=== PATIENT | female | born 1960 | race Caucasian/White ===

== ENCOUNTER 2020-02-28 05:30 | Inpatient (IN) ==
[2020-02-23 12:45] LABS: Basophils % 0.6 % (0.0-0.8); Eosinophils # 0.3 10*3/uL (0.0-0.87); Eosinophils % 4.5 % (0.00-10.9); Hematocrit 36.8 VOL% (35.7-47.0); Hemoglobin 11.6 GM/DL (12.0-16.0); Immature Granulocytes % 0.6 %; Immature Granulocytes Absolute 0.04 #; Lymphocytes # 1.7 10*3/uL (1.4-4.0); Lymphocytes % 25.3 % (21.3-54.2); Mean Corpuscular HGB Conc 31.5 GM/DL (32-36); Mean Corpuscular Volume 100.3 FL (87-102); Mean Platelet Volume 12.8 FL (9.6-12.0); Monocytes % 7.6 % (1.7-12.7); Neutrophils % 61.4 % (38.7-73.9); Platelet Count 180 T/CUMM (130-400); Red Blood Count 3.67 MC/CUMM (3.8-5.5); Red Cell Distribution Width 13.4 % (9.3-17.3); White Blood Count 6.7 T/CUMM (4-12)
[2020-02-23 12:50] LABS: PT Patient Result 10.3 SECS (9.8-11.9)
[2020-02-23 13:01] LABS: Apearance,Urine CLOUDY (Clear); Bacteria,Urine Occasional /HPF (Few); Bilirubin,Urine Negative (Negative); Blood, Urine Negative (Negative); Glucose,Urine (UA) Negative (Negative); Ketones,Urine Negative (Negative); Mucus,Urine Occasional /LPF (Occasional); Nitrite,Urine Negative (Negative); Protein,Urine Negative; RBC,Urine 5 /HPF (0-4); Squamous Epithelial Cell,Urine Occasional /HPF (0-10); Urine Color Yellow (Yellow); Urine Specific Gravity 1.024 (1.001-1.035); Urine Urobilinogen < 2.0 EU/DL (0.2-1.0); WBC,Urine 1 /HPF (0-6)
[2020-02-23 13:30] LABS: Albumin 3.2 G/DL (3.4-5.0); Bilirubin,Total 0.6 MG/DL (0.2-1.0); Calcium 8.5 MG/DL (8.5-10.1); Osmolality,Calculated 280.5 MOS/KG (273-304); Total Protein 6.8 G/DL (6.4-8.3)
[2020-02-28] MEDS ORDERED: VANCOMYCIN INJ 1,000 MG in SODIUM CHLORIDE 0.9% 250 ML IV ONE ×2 (06:00→18:45)
[2020-02-28] MEDS ORDERED: LACTATED RINGERS 1,000 ML IV SCH (06:00)
[2020-02-28] MEDS ORDERED: GABAPENTIN 400 MG CAPSULE PO ONE (06:00)
[2020-02-28] MEDS ORDERED: ACETAMINOPHEN 500 MG TABLET PO ONE (06:00)
[2020-02-28] MEDS ORDERED: ceFAZolin 1,000 MG in SYRINGE 1 EACH IV ONE (06:00)
[2020-02-28] MEDS ORDERED: FAMOTIDINE 20 MG/2 ML VIAL IV ONE ×2 (06:00→06:39)
[2020-02-28] MEDS ORDERED: ceFAZolin 1,000 MG VIAL ONE (06:12)
[2020-02-28] MEDS ORDERED: VANCOMYCIN 1,000 MG VIAL ONE (06:12)
[2020-02-28] MEDS ORDERED: GABAPENTIN 400 MG CAPSULE ONE (06:38)
[2020-02-28] MEDS ORDERED: ACETAMINOPHEN 500 MG TABLET ONE (06:38)
[2020-02-28] MEDS ORDERED: DEXAMETHASONE 4 MG/1 ML VIAL ONE ×2 (06:42→09:38)
[2020-02-28] MEDS ORDERED: ROPIVACAINE 0.5% 30 ML VIAL ONE (06:42)
[2020-02-28] MEDS ORDERED: DEXMEDETOMIDINE 200 MCG/2 ML VIAL ONE (06:43)
[2020-02-28] MEDS ORDERED: LIDOCAINE 1% 5 ML VIAL ONE (06:43)
[2020-02-28] MEDS ORDERED: BUPIVACAINE SPINAL 0.75% 2 ML AMP SPINAL ONE (06:43)
[2020-02-28] MEDS ORDERED: BACITRACIN OINT 0.9 GM PACK TOP ONE (08:31)
[2020-02-28] MEDS ORDERED: CYCLOBENZAPRINE 10 MG TABLET PO PRN (09:20)
[2020-02-28] MEDS ORDERED: diphenhydrAMINE CAP 25 MG CAPSULE PO PRN (09:22)
[2020-02-28] MEDS ORDERED: ONDANSETRON 4 MG/2 ML VIAL IV PRN ×2 (09:22→10:39)
[2020-02-28] MEDS ORDERED: MORPHINE 4 MG/1 ML VIAL IV PRN ×2 (09:22)
[2020-02-28] MEDS ORDERED: MAGNESIUM HYDROXIDE SUSP 30 ML UDCUP PO PRN (09:22)
[2020-02-28] MEDS ORDERED: fentaNYL 100 MCG/2 ML VIAL ONE (09:38)
[2020-02-28] MEDS ORDERED: propofoL 200 MG/20 ML VIAL IV ONE (09:38)
[2020-02-28] MEDS ORDERED: GLYCOPYRROLATE 0.4 MG/2 ML VIAL ONE (09:38)
[2020-02-28] MEDS ORDERED: ONDANSETRON 4 MG/2 ML VIAL ONE ×2 (09:38→10:36)
[2020-02-28] MEDS ORDERED: LIDOCAINE 2% 5 ML VIAL ONE (09:38)
[2020-02-28] MEDS ORDERED: SEVOFLURANE 1 UNIT/15 MINUTE INH ONE (09:38)
[2020-02-28] MEDS ORDERED: MIDAZOLAM 2 MG/2 ML VIAL ONE (09:38)
[2020-02-28] MEDS ORDERED: ROCURONIUM 100 MG/10 ML VIAL IV ONE (09:39)
[2020-02-28] MEDS ORDERED: NEOSTIGMINE 10 MG/10 ML VIAL ONE (09:39)
[2020-02-28] MEDS ORDERED: PHENYLEPHRINE 1 MG/10 ML SYRINGE IV ONE (09:39)
[2020-02-28 09:59] LABS: Apearance,Urine CLEAR (Clear); Bilirubin,Urine Negative (Negative); Blood, Urine Small mg/dL (Negative); Glucose,Urine (UA) Negative (Negative); Ketones,Urine Negative (Negative); Mucus,Urine Occasional /LPF (Occasional); Nitrite,Urine Negative (Negative); Protein,Urine Negative; RBC,Urine <1 /HPF (0-4); Urine Color Yellow (Yellow); Urine Specific Gravity 1.016 (1.001-1.035); Urine Urobilinogen < 2.0 EU/DL (0.2-1.0)
[2020-02-28] MEDS: LACTATED RINGERS 1,000 ML IV SCH ×2 (10:02→21:29)
[2020-02-28] MEDS ORDERED: HYDROmorphone 2 MG/1 ML VIAL ONE (10:35)
[2020-02-28] MEDS: HYDROmorphone 2 MG/1 ML VIAL IV PRN ×2 (10:40→11:08)
[2020-02-28] MEDS: KETOROLAC 30 MG/1 ML VIAL IV SCH ×2 (15:54→21:28)
[2020-02-28] MEDS: ceFAZolin 2,000 MG in PREMIX 1 EACH IV SCH ×2 (15:54→23:47)
[2020-02-28] MEDS: carvediloL 3.125 MG TABLET PO SCH (21:27)
[2020-02-28] MEDS: TICAGRELOR 90 MG TABLET PO SCH (21:28)
[2020-02-28] MEDS: DOCUSATE SODIUM 100 MG CAPSULE PO SCH (21:28)
[2020-02-29] MEDS: LACTATED RINGERS 1,000 ML IV SCH (00:54)
[2020-02-29] MEDS: KETOROLAC 30 MG/1 ML VIAL IV SCH ×2 (04:45→09:25)
[2020-02-29 07:00] LABS: Basophils % 0.1 % (0.0-0.8); Hematocrit 29.3 VOL% (35.7-47.0); Hemoglobin 9.3 GM/DL (12.0-16.0); Immature Granulocytes % 0.4 %; Immature Granulocytes Absolute 0.03 #; Lymphocytes # 0.9 10*3/uL (1.4-4.0); Lymphocytes % 10.6 % (21.3-54.2); Mean Corpuscular HGB Conc 31.7 GM/DL (32-36); Mean Platelet Volume 12.5 FL (9.6-12.0); Monocytes % 10.8 % (1.7-12.7); Neutrophils % 78.1 % (38.7-73.9); Platelet Count 144 T/CUMM (130-400); Red Blood Count 2.93 MC/CUMM (3.8-5.5); Red Cell Distribution Width 13.4 % (9.3-17.3); White Blood Count 8.5 T/CUMM (4-12)
[2020-02-29 07:26] LABS: Calcium 7.9 MG/DL (8.5-10.1); Osmolality,Calculated 276.1 MOS/KG (273-304)
[2020-02-29 07:29] LABS: Calcium 7.9 MG/DL (8.5-10.1)
[2020-02-29] MEDS: LISINOPRIL/HCTZ 20-12.5 MG TABLET PO SCH (09:00)
[2020-02-29] MEDS: TICAGRELOR 90 MG TABLET PO SCH ×2 (09:01→22:10)
[2020-02-29] MEDS: carvediloL 3.125 MG TABLET PO SCH ×2 (09:01→22:10)
[2020-02-29] MEDS: DOCUSATE SODIUM 100 MG CAPSULE PO SCH ×2 (09:01→22:10)
[2020-02-29] MEDS: ROSUVASTATIN 20 MG TABLET PO SCH (09:01)
[2020-02-29] MEDS: ASPIRIN EC 325 MG TABLET PO SCH (09:01)
[2020-03-01 05:30] LABS: Basophils % 0.2 % (0.0-0.8); Eosinophils # 0.1 10*3/uL (0.0-0.87); Eosinophils % 1.1 % (0.00-10.9); Hematocrit 29.1 VOL% (35.7-47.0); Hemoglobin 9.2 GM/DL (12.0-16.0); Immature Granulocytes % 0.6 %; Immature Granulocytes Absolute 0.05 #; Lymphocytes # 1.7 10*3/uL (1.4-4.0); Lymphocytes % 18.6 % (21.3-54.2); Mean Corpuscular HGB Conc 31.6 GM/DL (32-36); Mean Corpuscular Volume 101.4 FL (87-102); Mean Platelet Volume 12.5 FL (9.6-12.0); Monocytes % 9.7 % (1.7-12.7); Neutrophils % 69.8 % (38.7-73.9); Platelet Count 137 T/CUMM (130-400); Red Blood Count 2.87 MC/CUMM (3.8-5.5); Red Cell Distribution Width 13.9 % (9.3-17.3)
[2020-03-01 07:48] VITALS: BP 95/52
[2020-03-01] MEDS: TICAGRELOR 90 MG TABLET PO SCH (09:30)
[2020-03-01] MEDS: ASPIRIN EC 325 MG TABLET PO SCH (09:30)
[2020-03-01] MEDS: ROSUVASTATIN 20 MG TABLET PO SCH (09:30)
[2020-03-01] MEDS: DOCUSATE SODIUM 100 MG CAPSULE PO SCH (09:30)
[2020-03-01] MEDS: carvediloL 3.125 MG TABLET PO SCH (09:35)
[2020-03-01] MEDS: LISINOPRIL/HCTZ 20-12.5 MG TABLET PO SCH (09:35)
== END 2020-03-01 11:06 | disposition home health service (06) | DRG 470 ==
LOC: N.SDSINP 05:30 → N.3E 14:41
PROVIDERS: ADMIT Orthopaedic Surgery; ATTEND Orthopaedic Surgery

== ENCOUNTER 2020-08-02 05:34 | Inpatient (IN) ==
[2020-07-11 12:17] LABS: Bilirubin,Urine Negative (Negative); Blood, Urine Negative (Negative); Glucose,Urine (UA) Negative (Negative); Ketones,Urine Negative (Negative); Mucus,Urine Occasional /LPF (Occasional); Nitrite,Urine Negative (Negative); Protein,Urine Negative; RBC,Urine 2 /HPF (0-4); Squamous Epithelial Cell,Urine Occasional /HPF (0-10); Urine Appearance Slightly Hazy (Clear); Urine Color Yellow (Yellow); Urine Specific Gravity 1.027 (1.001-1.035); Urine Urobilinogen < 2.0 EU/DL (0.2-1.0); WBC,Urine 2 /HPF (0-6)
[2020-07-11 12:20] LABS: Basophils % 0.5 % (0.0-0.8); Eosinophils # 0.2 10*3/uL (0.0-0.87); Eosinophils % 2.8 % (0.00-10.9); Hematocrit 31.6 VOL% (35.7-47.0); Hemoglobin 9.8 GM/DL (12.0-16.0); Immature Granulocytes % 0.8 %; Immature Granulocytes Absolute 0.05 #; Lymphocytes # 1.2 10*3/uL (1.4-4.0); Mean Corpuscular Volume 91.9 FL (87-102); Mean Platelet Volume 11.5 FL (9.6-12.0); Monocytes % 10.7 % (1.7-12.7); Neutrophils % 66.2 % (38.7-73.9); Platelet Count 240 T/CUMM (130-400); Red Blood Count 3.44 MC/CUMM (3.8-5.5); Red Cell Distribution Width 18.4 % (9.3-17.3); White Blood Count 6.4 T/CUMM (4-12)
[2020-07-11 13:02] LABS: Eosinophils 2 % (0-10); Hypochromasia 1+; Lymphocytes 25 % (20-55); Microcytosis Slight; Platelet Estimate Adequate; Segmented Neutrophils 67 % (50-85); Total Cells Counted 100
[2020-07-11 13:17] LABS: PT Patient Result 10.3 SECS (9.8-11.9)
[2020-07-11 13:25] LABS: Alanine Aminotransferase 18 U/L (13-56); Albumin 3.2 G/DL (3.4-5.0); Alkaline Phosphatase 81 U/L (45-117); Aspartate Amino Transferase 12 U/L (0-37); Bilirubin,Total < 0.39 MG/DL (0.2-1.0); Blood Urea Nitrogen 38 MG/DL (7-18); Calcium 9.4 MG/DL (8.5-10.1); Estimated Glom Filtration Rate 63 ML/MIN; Glucose 102 MG/DL (74-106); Osmolality,Calculated 287.4 MOS/KG (273-304); Total Protein 7.3 G/DL (6.4-8.3)
[~2020-08-02 05:34] MED LIST: VANCOMYCIN INJ 1,000 MG in SODIUM CHLORIDE 0.9% 250 ML IV ONE; ceFAZolin 1,000 MG in SYRINGE 1 EACH IV ONE
[2020-08-02] MEDS ORDERED: VANCOMYCIN 1,000 MG VIAL ONE (05:44)
[2020-08-02] MEDS ORDERED: ceFAZolin 1,000 MG VIAL ONE (05:45)
[2020-08-02] MEDS ORDERED: MIDAZOLAM 2 MG/2 ML VIAL ONE (06:23)
[2020-08-02] MEDS ORDERED: fentaNYL 100 MCG/2 ML VIAL ONE ×2 (06:23→09:45)
[2020-08-02] MEDS ORDERED: LIDOCAINE 2% 5 ML VIAL ONE (06:23)
[2020-08-02] MEDS ORDERED: propofoL 200 MG/20 ML VIAL IV ONE (06:23)
[2020-08-02] MEDS ORDERED: LACTATED RINGERS 1,000 ML IV SCH (06:30)
[2020-08-02] MEDS ORDERED: VANCOMYCIN INJ 1,000 MG in SODIUM CHLORIDE 0.9% 250 ML IV ONE ×2 (06:31→18:00)
[2020-08-02] MEDS ORDERED: ceFAZolin 1,000 MG in SYRINGE 1 EACH IV ONE (06:39)
[2020-08-02] MEDS ORDERED: BUPIVACAINE MPF 0.25% 30 ML VIAL ONE (06:39)
[2020-08-02] MEDS ORDERED: FAMOTIDINE 20 MG TABLET PO ONE (06:43)
[2020-08-02] MEDS ORDERED: ROCURONIUM 50 MG/5 ML VIAL IV ONE (07:13)
[2020-08-02] MEDS ORDERED: ETOMIDATE 40 MG/20 ML VIAL IV ONE (07:14)
[2020-08-02] MEDS ORDERED: ePHEDrine 50 MG/ML VIAL ONE ×2 (07:45→09:07)
[2020-08-02] MEDS ORDERED: SODIUM CHLORIDE 0.9% 100 ML IV ONE (07:59)
[2020-08-02] MEDS ORDERED: TRANEXAMIC ACID 1,000 MG/10 ML VIAL ONE (07:59)
[2020-08-02] MEDS ORDERED: ACETAMINOPHEN 1,000 MG/100 ML VIAL IV ONE (08:34)
[2020-08-02] MEDS ORDERED: LACTATED RINGERS 1,000 ML IV ONE (08:37)
[2020-08-02] MEDS ORDERED: ONDANSETRON 4 MG/2 ML VIAL ONE (08:38)
[2020-08-02] MEDS ORDERED: NEOSTIGMINE 10 MG/10 ML VIAL ONE (08:40)
[2020-08-02] MEDS ORDERED: GLYCOPYRROLATE 0.4 MG/2 ML VIAL ONE (08:40)
[2020-08-02] MEDS ORDERED: DEXAMETHASONE 4 MG/1 ML VIAL ONE (08:52)
[2020-08-02] MEDS ORDERED: PHENYLEPHRINE 1 MG/10 ML SYRINGE IV ONE (09:04)
[2020-08-02] MEDS ORDERED: SEVOFLURANE 1 UNIT/15 MINUTE INH ONE (09:23)
[2020-08-02] MEDS ORDERED: BACITRACIN OINT 0.9 GM PACK TOP ONE (09:30)
[2020-08-02] MEDS ORDERED: MAGNESIUM HYDROXIDE SUSP 30 ML UDCUP PO PRN (09:44)
[2020-08-02] MEDS ORDERED: MORPHINE 4 MG/1 ML VIAL IV PRN ×2 (09:44)
[2020-08-02] MEDS ORDERED: diphenhydrAMINE CAP 25 MG CAPSULE PO PRN (09:44)
[2020-08-02] MEDS ORDERED: ONDANSETRON 4 MG/2 ML VIAL IV PRN ×2 (09:44→10:06)
[2020-08-02] MEDS ORDERED: MEPERIDINE 25 MG/1 ML VIAL IV PRN (10:06)
[2020-08-02] MEDS ORDERED: PROMETHAZINE INJ 25 MG in SODIUM CHLORIDE 0.9% 50 ML IV PRN (10:35)
[2020-08-02] MEDS ORDERED: PROMETHAZINE 25 MG/1 ML VIAL ONE (10:38)
[2020-08-02] MEDS: KETOROLAC 30 MG/1 ML VIAL IV SCH ×3 (11:49→21:45)
[2020-08-02] MEDS: FERROUS SULFATE 325 MG TABLET PO SCH (12:59)
[2020-08-02] MEDS: LACTATED RINGERS 1,000 ML IV SCH ×3 (12:59→23:36)
[2020-08-02] MEDS: ceFAZolin 2,000 MG in PREMIX 1 EACH IV SCH ×2 (15:04→21:45)
[2020-08-02] MEDS: TICAGRELOR 90 MG TABLET PO SCH (20:26)
[2020-08-02] MEDS: DOCUSATE SODIUM 100 MG CAPSULE PO SCH (20:26)
[2020-08-03] MEDS: KETOROLAC 30 MG/1 ML VIAL IV SCH (03:37)
[2020-08-03 05:50] LABS: Basophils % 0.2 % (0.0-0.8); Eosinophils % 0.4 % (0.00-10.9); Hematocrit 26.2 VOL% (35.7-47.0); Immature Granulocytes % 0.5 %; Immature Granulocytes Absolute 0.04 #; Lymphocytes # 1.1 10*3/uL (1.4-4.0); Lymphocytes % 13.4 % (21.3-54.2); Mean Corpuscular HGB Conc 30.5 GM/DL (32-36); Mean Corpuscular Volume 94.6 FL (87-102); Mean Platelet Volume 12.2 FL (9.6-12.0); Monocytes % 9.6 % (1.7-12.7); Neutrophils % 75.9 % (38.7-73.9); Platelet Count 155 T/CUMM (130-400); Red Blood Count 2.77 MC/CUMM (3.8-5.5); Red Cell Distribution Width 18.3 % (9.3-17.3); White Blood Count 8.4 T/CUMM (4-12)
[2020-08-03 06:10] LABS: Calcium 8.3 MG/DL (8.5-10.1); Osmolality,Calculated 281.5 MOS/KG (273-304)
[2020-08-03] MEDS: LACTATED RINGERS 1,000 ML IV SCH (07:46)
[2020-08-03] MEDS: carvediloL 3.125 MG TABLET PO SCH (08:49)
[2020-08-03] MEDS: PANTOPRAZOLE 40 MG TABLET PO SCH (08:49)
[2020-08-03] MEDS: DOCUSATE SODIUM 100 MG CAPSULE PO SCH ×2 (08:49→21:22)
[2020-08-03] MEDS: TICAGRELOR 90 MG TABLET PO SCH ×2 (08:49→21:21)
[2020-08-03] MEDS: LISINOPRIL/HCTZ 20-12.5 MG TABLET PO SCH (08:49)
[2020-08-03] MEDS: ASPIRIN EC 81 MG TABLET PO SCH (08:49)
[2020-08-03] MEDS: ceFAZolin 2,000 MG in PREMIX 1 EACH IV SCH ×2 (08:49→16:15)
[2020-08-03] MEDS: ROSUVASTATIN 20 MG TABLET PO SCH (21:21)
[2020-08-04] MEDS: ceFAZolin 2,000 MG in PREMIX 1 EACH IV SCH ×2 (01:33→09:10)
[2020-08-04 05:57] LABS: Basophils % 0.4 % (0.0-0.8); Eosinophils # 0.4 10*3/uL (0.0-0.87); Eosinophils % 4.9 % (0.00-10.9); Hematocrit 26.6 VOL% (35.7-47.0); Hemoglobin 8.2 GM/DL (12.0-16.0); Immature Granulocytes % 0.3 %; Immature Granulocytes Absolute 0.02 #; Lymphocytes # 1.1 10*3/uL (1.4-4.0); Lymphocytes % 15.6 % (21.3-54.2); Mean Corpuscular HGB Conc 30.8 GM/DL (32-36); Mean Corpuscular Volume 92.7 FL (87-102); Mean Platelet Volume 11.6 FL (9.6-12.0); Monocytes % 9.9 % (1.7-12.7); Neutrophils % 68.9 % (38.7-73.9); Platelet Count 148 T/CUMM (130-400); Red Blood Count 2.87 MC/CUMM (3.8-5.5); Red Cell Distribution Width 18.7 % (9.3-17.3); White Blood Count 7.3 T/CUMM (4-12)
[2020-08-04] MEDS: LISINOPRIL/HCTZ 20-12.5 MG TABLET PO SCH (09:09)
[2020-08-04] MEDS: DOCUSATE SODIUM 100 MG CAPSULE PO SCH ×2 (09:09→20:30)
[2020-08-04] MEDS: ASPIRIN EC 81 MG TABLET PO SCH (09:09)
[2020-08-04] MEDS: PANTOPRAZOLE 40 MG TABLET PO SCH (09:09)
[2020-08-04] MEDS: carvediloL 3.125 MG TABLET PO SCH (09:09)
[2020-08-04] MEDS: TICAGRELOR 90 MG TABLET PO SCH ×2 (10:46→20:30)
[2020-08-04] MEDS: FERROUS SULFATE 325 MG TABLET PO SCH (13:07)
[2020-08-04] MEDS: ROSUVASTATIN 20 MG TABLET PO SCH (20:30)
[2020-08-04] MEDS: SULFAMETHOX/TRIMETHOPRIM 800-160 MG TABLET PO SCH (20:30)
[2020-08-05 06:43] LABS: Basophils % 0.6 % (0.0-0.8); Eosinophils # 0.4 10*3/uL (0.0-0.87); Eosinophils % 5.9 % (0.00-10.9); Hematocrit 26.6 VOL% (35.7-47.0); Hemoglobin 8.1 GM/DL (12.0-16.0); Immature Granulocytes % 0.7 %; Immature Granulocytes Absolute 0.05 #; Lymphocytes # 1.8 10*3/uL (1.4-4.0); Lymphocytes % 24.5 % (21.3-54.2); Mean Corpuscular HGB Conc 30.5 GM/DL (32-36); Mean Platelet Volume 12.3 FL (9.6-12.0); Monocytes % 10.3 % (1.7-12.7); Platelet Count 155 T/CUMM (130-400); Red Blood Count 2.86 MC/CUMM (3.8-5.5); Red Cell Distribution Width 18.9 % (9.3-17.3); White Blood Count 7.2 T/CUMM (4-12)
[2020-08-05 07:27] LABS: Band Neutrophils 3 % (0-10); Eosinophils 4 % (0-10); Lymphocytes 21 % (20-55); Platelet Estimate Normal; Segmented Neutrophils 62 % (50-85); Total Cells Counted 100
[2020-08-05 07:28] LABS: Anisocytosis Slight
[2020-08-05] MEDS: LISINOPRIL/HCTZ 20-12.5 MG TABLET PO SCH (09:12)
[2020-08-05] MEDS: carvediloL 3.125 MG TABLET PO SCH (09:12)
[2020-08-05] MEDS: SULFAMETHOX/TRIMETHOPRIM 800-160 MG TABLET PO SCH (09:26)
[2020-08-05] MEDS: DOCUSATE SODIUM 100 MG CAPSULE PO SCH (09:26)
[2020-08-05] MEDS: TICAGRELOR 90 MG TABLET PO SCH (09:26)
[2020-08-05] MEDS: PANTOPRAZOLE 40 MG TABLET PO SCH (09:26)
[2020-08-05] MEDS: ASPIRIN EC 81 MG TABLET PO SCH (09:26)
[2020-08-05 11:44] VITALS: BP 104/48
== END 2020-08-05 15:10 | disposition home health service (06) | DRG 467 ==
LOC: N.OR 05:34 → N.SDSINP 05:36 → N.3E 11:35
PROVIDERS: ADMIT Orthopaedic Surgery; ATTEND Orthopaedic Surgery

== ENCOUNTER 2020-11-20 05:35 | Inpatient (IN) ==
[2020-11-20] MEDS ORDERED: ceFAZolin 2,000 MG in PREMIX 1 EACH IV ONE (06:00)
[2020-11-20] MEDS ORDERED: VANCOMYCIN INJ 1,000 MG in SODIUM CHLORIDE 0.9% 250 ML IV ONE ×2 (06:00→20:00)
[2020-11-20] MEDS ORDERED: TRANEXAMIC ACID 1,000 MG/10 ML VIAL ONE (06:28)
[2020-11-20] MEDS ORDERED: BACITRACIN OINT 0.9 GM PACK TOP ONE (06:29)
[2020-11-20 06:46] LABS: Bilirubin,Urine Negative (Negative); Blood, Urine Moderate mg/dL (Negative); Glucose,Urine (UA) Negative (Negative); Ketones,Urine Negative (Negative); Mucus,Urine Occasional /LPF (Occasional); Nitrite,Urine Negative (Negative); Protein,Urine Negative; RBC,Urine 1 /HPF (0-4); Squamous Epithelial Cell,Urine Few /HPF (0-10); Urine Appearance Slightly Hazy (Clear); Urine Color Yellow (Yellow); Urine Specific Gravity 1.023 (1.001-1.035); Urine Urobilinogen < 2.0 EU/DL (0.2-1.0); WBC,Urine 1 /HPF (0-6)
[2020-11-20] MEDS ORDERED: ACETAMINOPHEN 500 MG TABLET PO ONE (06:49)
[2020-11-20] MEDS ORDERED: DIAZEPAM 5 MG TABLET PO ONE (06:49)
[2020-11-20] MEDS ORDERED: GABAPENTIN 400 MG CAPSULE PO ONE (06:49)
[2020-11-20] MEDS ORDERED: FAMOTIDINE 20 MG TABLET PO ONE (06:49)
[2020-11-20] MEDS ORDERED: ALBUTEROL 2.5 MG/3 ML NEB RESP TX ONE (06:49)
[2020-11-20 06:55] LABS: PT Patient Result 10.6 SECS (9.8-11.9); Partial Thromboplastin Time 25.3 SECS (23.9-33.8)
[2020-11-20] MEDS: LACTATED RINGERS 1,000 ML IV SCH ×2 (07:00→10:39)
[2020-11-20] MEDS ORDERED: BUPIVACAINE SPINAL 0.75% 2 ML AMP SPINAL ONE (07:29)
[2020-11-20] MEDS ORDERED: fentaNYL 100 MCG/2 ML VIAL ONE ×2 (07:30→08:44)
[2020-11-20] MEDS ORDERED: DEXMEDETOMIDINE 200 MCG/2 ML VIAL ONE (07:30)
[2020-11-20] MEDS ORDERED: LIDOCAINE 2% 5 ML VIAL ONE ×2 (07:30→07:49)
[2020-11-20] MEDS ORDERED: MIDAZOLAM 2 MG/2 ML VIAL ONE ×3 (07:30→09:47)
[2020-11-20] MEDS ORDERED: DEXAMETHASONE 4 MG/1 ML VIAL ONE (07:49)
[2020-11-20] MEDS ORDERED: ROPIVACAINE 0.5% 30 ML VIAL ONE (07:49)
[2020-11-20] MEDS ORDERED: ONDANSETRON 4 MG/2 ML VIAL ONE (08:54)
[2020-11-20] MEDS ORDERED: PHENYLEPHRINE 1 MG/10 ML SYRINGE IV ONE (08:54)
[2020-11-20] MEDS ORDERED: GLYCOPYRROLATE 0.4 MG/2 ML VIAL ONE (08:58)
[2020-11-20] MEDS ORDERED: propofoL 200 MG/20 ML VIAL IV ONE (09:33)
[2020-11-20] MEDS ORDERED: ONDANSETRON 4 MG/2 ML VIAL IV PRN (11:24)
[2020-11-20] MEDS ORDERED: KETOROLAC 30 MG/1 ML VIAL IV PRN (11:24)
[2020-11-20] MEDS ORDERED: ZALEPLON 5 MG CAPSULE PO PRN (11:24)
[2020-11-20] MEDS ORDERED: MAGNESIUM HYDROXIDE SUSP 30 ML UDCUP PO PRN (11:24)
[2020-11-20] MEDS ORDERED: MORPHINE 4 MG/1 ML VIAL IV PRN ×2 (11:24)
[2020-11-20] MEDS ORDERED: LACTATED RINGERS 1,000 ML IV SCH (11:30)
[2020-11-20 11:31] LABS: Bacteria,Urine Occasional /HPF (Few); Bilirubin,Urine Negative (Negative); Blood, Urine Small mg/dL (Negative); Glucose,Urine (UA) Negative (Negative); Hyaline Casts,Urine 1 /LPF (0-3); Ketones,Urine Negative (Negative); Mucus,Urine Few /LPF (Occasional); Nitrite,Urine Negative (Negative); Protein,Urine Negative; RBC,Urine <1 /HPF (0-4); Squamous Epithelial Cell,Urine Few /HPF (0-10); Urine Appearance CLEAR (Clear); Urine Color Yellow (Yellow); Urine Specific Gravity 1.024 (1.001-1.035); Urine Urobilinogen < 2.0 EU/DL (0.2-1.0)
[2020-11-20] MEDS: ceFAZolin 2,000 MG in PREMIX 1 EACH IV SCH (14:48)
[2020-11-20] MEDS: DOCUSATE SODIUM 100 MG CAPSULE PO SCH (20:27)
[2020-11-20] MEDS: carvediloL 3.125 MG TABLET PO SCH (20:29)
[2020-11-21] MEDS: ceFAZolin 2,000 MG in PREMIX 1 EACH IV SCH (00:05)
[2020-11-21 05:35] LABS: Basophils % 0.1 % (0.0-0.8); Eosinophils % 0.1 % (0.00-10.9); Hematocrit 33.9 VOL% (35.7-47.0); Hemoglobin 10.5 GM/DL (12.0-16.0); Immature Granulocytes % 0.5 %; Immature Granulocytes Absolute 0.04 #; Lymphocytes # 0.9 10*3/uL (1.4-4.0); Lymphocytes % 10.7 % (21.3-54.2); Mean Corpuscular Volume 91.6 FL (87-102); Mean Platelet Volume 12.8 FL (9.6-12.0); Monocytes % 9.1 % (1.7-12.7); Neutrophils % 79.5 % (38.7-73.9); Platelet Count 168 T/CUMM (130-400); White Blood Count 8.8 T/CUMM (4-12)
[2020-11-21 06:03] LABS: Calcium 8.3 MG/DL (8.5-10.1); Osmolality,Calculated 277.7 MOS/KG (273-304)
[2020-11-21] MEDS: ROSUVASTATIN 20 MG TABLET PO SCH (08:35)
[2020-11-21] MEDS: ASPIRIN EC 81 MG TABLET PO SCH (08:35)
[2020-11-21] MEDS: hydroCHLOROthiazide 12.5 MG CAPSULE PO SCH (08:35)
[2020-11-21] MEDS: DOCUSATE SODIUM 100 MG CAPSULE PO SCH ×3 (08:35→21:25)
[2020-11-21] MEDS: PANTOPRAZOLE 40 MG TABLET PO SCH (08:35)
[2020-11-21] MEDS: lisinopriL 20 MG TABLET PO SCH (08:36)
[2020-11-21] MEDS: CLOPIDOGREL 75 MG TABLET PO SCH (08:36)
[2020-11-21] MEDS: carvediloL 3.125 MG TABLET PO SCH (08:36)
[2020-11-21] MEDS ORDERED: carvediloL 3.125 MG TABLET PO SCH (09:00)
[2020-11-22] MEDS: carvediloL 3.125 MG TABLET PO SCH ×3 (00:11→08:58)
[2020-11-22 05:20] LABS: Basophils % 0.2 % (0.0-0.8); Eosinophils % 0.3 % (0.00-10.9); Hematocrit 32.8 VOL% (35.7-47.0); Hemoglobin 10.3 GM/DL (12.0-16.0); Immature Granulocytes % 0.6 %; Immature Granulocytes Absolute 0.05 #; Lymphocytes # 1.2 10*3/uL (1.4-4.0); Lymphocytes % 13.7 % (21.3-54.2); Mean Corpuscular HGB Conc 31.4 GM/DL (32-36); Mean Corpuscular Volume 89.9 FL (87-102); Mean Platelet Volume 12.6 FL (9.6-12.0); Monocytes % 10.3 % (1.7-12.7); Neutrophils % 74.9 % (38.7-73.9); Platelet Count 147 T/CUMM (130-400); Red Blood Count 3.65 MC/CUMM (3.8-5.5); Red Cell Distribution Width 18.4 % (9.3-17.3); White Blood Count 8.9 T/CUMM (4-12)
[2020-11-22] MEDS: ASPIRIN EC 81 MG TABLET PO SCH (08:57)
[2020-11-22] MEDS: ROSUVASTATIN 20 MG TABLET PO SCH (08:58)
[2020-11-22] MEDS: lisinopriL 20 MG TABLET PO SCH (08:58)
[2020-11-22] MEDS: CLOPIDOGREL 75 MG TABLET PO SCH (08:58)
[2020-11-22] MEDS: DOCUSATE SODIUM 100 MG CAPSULE PO SCH (08:58)
[2020-11-22] MEDS: hydroCHLOROthiazide 12.5 MG CAPSULE PO SCH (08:58)
[2020-11-22] MEDS: PANTOPRAZOLE 40 MG TABLET PO SCH (08:59)
[2020-11-22 18:41] VITALS: BP 108/50
== END 2020-11-22 13:40 | disposition home or self-care (01) | DRG 470 ==
LOC: N.OR 05:35 → N.SDSINP 05:40 → N.3E 10:30
PROVIDERS: ADMIT Orthopaedic Surgery; ATTEND Orthopaedic Surgery

== ENCOUNTER 2022-03-31 10:35 | Inpatient (IN) ==
[2022-03-31] MEDS ORDERED: SODIUM CHLORIDE 0.9% 1,000 ML IV STA (11:38)
[2022-03-31 11:42] LABS: Basophils % 0.4 % (0.0-0.8); Eosinophils # 0.1 10*3/uL (0.0-0.87); Hematocrit 43.8 VOL% (35.7-47.0); Hemoglobin 13.5 GM/DL (12.0-16.0); Immature Granulocytes % 0.7 %; Immature Granulocytes Absolute 0.04 #; Lymphocytes # 1.2 10*3/uL (1.4-4.0); Lymphocytes % 22.4 % (21.3-54.2); Mean Corpuscular HGB Conc 30.8 GM/DL (32-36); Mean Corpuscular Volume 96.3 FL (87-102); Mean Platelet Volume 12.5 FL (9.6-12.0); Monocytes # 0.5 10*3/uL (0.11-0.8); Monocytes % 9.7 % (1.7-12.7); Neutrophils % 64.8 % (38.7-73.9); Platelet Count 207 T/CUMM (130-400); Red Blood Count 4.55 MC/CUMM (3.8-5.5); Red Cell Distribution Width 15.2 % (9.3-17.3); White Blood Count 5.4 T/CUMM (4-12)
[2022-03-31] MEDS ORDERED: DILTIAZEM 100 MG VIAL.ADD IV ONE (11:42)
[2022-03-31] MEDS: DILTIAZEM INJ 100 MG in SODIUM CHLORIDE 0.9% 100 ML IV SCH ×2 (11:50→23:30)
[2022-03-31 11:51] LABS: PT Patient Result 10.7 SECS (10.5-12.0); Partial Thromboplastin Time 27.9 SECS (23.7-32.9)
[2022-03-31 11:58] LABS: Alanine Aminotransferase 34 U/L (13-56); Albumin 3.3 G/DL (3.4-5.0); Alkaline Phosphatase 102 U/L (45-117); Aspartate Amino Transferase 18 U/L (0-37); Blood Urea Nitrogen 33 MG/DL (7-18); Calcium 8.8 MG/DL (8.5-10.1); Carbon Dioxide 23 MMOL/L (21-32); Chloride 111 MMOL/L (98-107); Glucose 110 MG/DL (74-106); Osmolality,Calculated 288.3 MOS/KG (273-304); Potassium 4.2 MMOL/L (3.5-5.1); Sodium 141 MMOL/L (136-145); Total Protein 7.1 G/DL (6.4-8.2)
[2022-03-31] MEDS ORDERED: LACTATED RINGERS 1,000 ML IV ONE (14:05)
[2022-03-31] MEDS ORDERED: SIMETHICONE CHEW 125 MG TABLET PO PRN (14:15)
[2022-03-31] MEDS ORDERED: ONDANSETRON 4 MG/2 ML VIAL IV PRN (14:15)
[2022-03-31] MEDS ORDERED: ACETAMINOPHEN 325 MG TABLET PO PRN (14:15)
[2022-03-31] MEDS ORDERED: DOCUSATE SODIUM 100 MG CAPSULE PO PRN (14:15)
[2022-03-31] MEDS ORDERED: GLUCAGON 1 MG VIAL IM PRN (14:15)
[2022-03-31] MEDS ORDERED: LACTULOSE 20 GM/30 ML UDCUP PO PRN (14:15)
[2022-03-31] MEDS ORDERED: DEXTROSE 10% 250 ML BAG IV PRN (14:24)
[2022-03-31] MEDS: APIXABAN 5 MG TABLET PO SCH ×2 (15:25→20:25)
[2022-03-31] MEDS: LACTATED RINGERS 1,000 ML IV SCH (15:25)
[2022-03-31 17:54] LABS: Thyroid Stimulating Hormone 1.64 uIU/ml (0.358-3.74)
[2022-04-01] MEDS: LACTATED RINGERS 1,000 ML IV SCH ×2 (05:05→19:33)
[2022-04-01 05:11] LABS: Basophils % 0.3 % (0.0-0.8); Eosinophils # 0.2 10*3/uL (0.0-0.87); Eosinophils % 2.9 % (0.00-10.9); Hematocrit 39.3 VOL% (35.7-47.0); Hemoglobin 11.7 GM/DL (12.0-16.0); Immature Granulocytes % 0.5 %; Immature Granulocytes Absolute 0.03 #; Lymphocytes # 1.6 10*3/uL (1.4-4.0); Mean Corpuscular HGB Conc 29.8 GM/DL (32-36); Mean Corpuscular Volume 98.3 FL (87-102); Mean Platelet Volume 12.8 FL (9.6-12.0); Monocytes # 0.5 10*3/uL (0.11-0.8); Monocytes % 8.4 % (1.7-12.7); Neutrophils % 61.9 % (38.7-73.9); Platelet Count 156 T/CUMM (130-400); Red Cell Distribution Width 15.2 % (9.3-17.3); White Blood Count 6.3 T/CUMM (4-12)
[2022-04-01 05:25] LABS: Alanine Aminotransferase 32 U/L (13-56); Albumin 2.8 G/DL (3.4-5.0); Alkaline Phosphatase 84 U/L (45-117); Aspartate Amino Transferase 17 U/L (0-37); Bilirubin,Total < 0.39 MG/DL (0.20-1.00); Blood Urea Nitrogen 30 MG/DL (7-18); Calcium 8.5 MG/DL (8.5-10.1); Carbon Dioxide 25 MMOL/L (21-32); Chloride 114 MMOL/L (98-107); Cholesterol 159 MG/DL (50-200); Glucose 102 MG/DL (74-106); HDL Cholesterol 35 MG/DL (40-60); Osmolality,Calculated 293.7 MOS/KG (273-304); Potassium 4.3 MMOL/L (3.5-5.1); Risk Ratio 4.54; Sodium 145 MMOL/L (136-145); Total Protein 6.1 G/DL (6.4-8.2); Triglycerides 110 MG/DL (2-150)
[2022-04-01] MEDS: PANTOPRAZOLE 40 MG TABLET PO SCH (09:33)
[2022-04-01] MEDS: APIXABAN 5 MG TABLET PO SCH ×2 (09:33→21:27)
[2022-04-01] MEDS ORDERED: METOPROLOL SUCCINATE XL 50 MG TABLET PO SCH (11:00)
[2022-04-01] MEDS: LOSARTAN 25 MG TABLET PO SCH ×2 (11:37→21:27)
[2022-04-01] MEDS: FUROSEMIDE 40 MG TABLET PO SCH (11:37)
[2022-04-01] MEDS: CLOPIDOGREL 75 MG TABLET PO SCH (11:37)
[2022-04-01] MEDS: DILTIAZEM 30 MG TABLET PO SCH ×2 (14:46→21:27)
[2022-04-01] MEDS: DILTIAZEM INJ 100 MG in SODIUM CHLORIDE 0.9% 100 ML IV SCH (14:48)
[2022-04-01] MEDS: NYSTATIN/TRIAMCINOLONE CREAM 15 GM TUBE TOP SCH ×2 (16:47→21:28)
[2022-04-01] MEDS: ROSUVASTATIN 20 MG TABLET PO SCH (21:27)
[2022-04-01] MEDS: METOPROLOL SUCCINATE XL 25 MG TABLET PO SCH (21:28)
[2022-04-02] MEDS: DILTIAZEM INJ 100 MG in SODIUM CHLORIDE 0.9% 100 ML IV SCH ×2 (00:52→12:08)
[2022-04-02] MEDS: DILTIAZEM 30 MG TABLET PO SCH ×2 (01:52→10:06)
[2022-04-02 05:31] LABS: Bacteria,Urine Occasional /HPF (Few); Mucus,Urine Occasional /LPF (Occasional); Protein,Urine Negative (Negative); RBC,Urine 1 /HPF (0-4); Squamous Epithelial Cell,Urine Occasional /HPF (0-10); Urine Appearance Clear (Clear); Urine Color Yellow (Yellow); Urine Specific Gravity 1.025 (1.001-1.035)
[2022-04-02 05:32] LABS: Bilirubin,Urine Negative (Negative); Blood, Urine Negative (Negative); Glucose,Urine (UA) 500 mg/dL (Negative); Ketones,Urine Negative (Negative); Nitrite,Urine Negative (Negative)
[2022-04-02 05:49] LABS: Basophils % 0.5 % (0.0-0.8); Eosinophils # 0.2 10*3/uL (0.0-0.87); Eosinophils % 3.1 % (0.00-10.9); Hematocrit 39.1 VOL% (35.7-47.0); Hemoglobin 11.9 GM/DL (12.0-16.0); Immature Granulocytes % 0.5 %; Immature Granulocytes Absolute 0.03 #; Lymphocytes # 1.7 10*3/uL (1.4-4.0); Lymphocytes % 25.8 % (21.3-54.2); Mean Corpuscular HGB Conc 30.4 GM/DL (32-36); Mean Corpuscular Volume 97.3 FL (87-102); Monocytes # 0.6 10*3/uL (0.11-0.8); Monocytes % 9.5 % (1.7-12.7); Neutrophils % 60.6 % (38.7-73.9); Platelet Count 156 T/CUMM (130-400); Red Blood Count 4.02 MC/CUMM (3.8-5.5); Red Cell Distribution Width 15.2 % (9.3-17.3); White Blood Count 6.4 T/CUMM (4-12)
[2022-04-02 05:58] LABS: Calcium 8.5 MG/DL (8.5-10.1); Potassium 3.8 MMOL/L (3.5-5.1)
[2022-04-02 06:14] LABS: Band Neutrophils 1 % (0-10); Eosinophils 4 % (0-10); Lymphocytes 30 % (20-55); Promyelocytes 1 %; Total Cells Counted 100
[2022-04-02 06:15] LABS: Platelet Estimate Adequate
[2022-04-02] MEDS: LACTATED RINGERS 1,000 ML IV SCH ×3 (06:39→21:34)
[2022-04-02] MEDS: CLOPIDOGREL 75 MG TABLET PO SCH (09:49)
[2022-04-02] MEDS: DILTIAZEM 60 MG TABLET PO SCH ×3 (09:49→21:12)
[2022-04-02] MEDS: FUROSEMIDE 40 MG TABLET PO SCH (09:50)
[2022-04-02] MEDS: APIXABAN 5 MG TABLET PO SCH ×2 (09:50→21:11)
[2022-04-02] MEDS: LOSARTAN 25 MG TABLET PO SCH ×2 (09:50→21:11)
[2022-04-02] MEDS: PANTOPRAZOLE 40 MG TABLET PO SCH (09:50)
[2022-04-02] MEDS: METOPROLOL SUCCINATE XL 25 MG TABLET PO SCH ×2 (09:50→21:10)
[2022-04-02] MEDS: NYSTATIN/TRIAMCINOLONE CREAM 15 GM TUBE TOP SCH ×2 (10:07→21:13)
[2022-04-02] MEDS ORDERED: LIDOCAINE 2% 5 ML VIAL ONE (12:51)
[2022-04-02] MEDS ORDERED: propofoL 200 MG/20 ML VIAL IV ONE (12:51)
[2022-04-02] MEDS ORDERED: PHENYLEPHRINE 1 MG/10 ML SYRINGE IV ONE (12:52)
[2022-04-02] MEDS ORDERED: ETOMIDATE 40 MG/20 ML VIAL IV ONE (12:52)
[2022-04-02] MEDS ORDERED: ONDANSETRON 4 MG/2 ML VIAL ONE (12:58)
[2022-04-02] MEDS ORDERED: SODIUM CHLORIDE 0.9% 1,000 ML IV SCH (13:00)
[2022-04-02] MEDS: ROSUVASTATIN 20 MG TABLET PO SCH (21:11)
[2022-04-03 05:28] LABS: Basophils % 0.3 % (0.0-0.8); Eosinophils # 0.2 10*3/uL (0.0-0.87); Eosinophils % 2.3 % (0.00-10.9); Hematocrit 37.5 VOL% (35.7-47.0); Hemoglobin 11.4 GM/DL (12.0-16.0); Immature Granulocytes % 0.4 %; Immature Granulocytes Absolute 0.03 #; Lymphocytes # 1.1 10*3/uL (1.4-4.0); Lymphocytes % 14.4 % (21.3-54.2); Mean Corpuscular HGB Conc 30.4 GM/DL (32-36); Mean Corpuscular Volume 97.9 FL (87-102); Mean Platelet Volume 12.9 FL (9.6-12.0); Monocytes # 0.8 10*3/uL (0.11-0.8); Monocytes % 9.9 % (1.7-12.7); Neutrophils % 72.7 % (38.7-73.9); Platelet Count 153 T/CUMM (130-400); Red Blood Count 3.83 MC/CUMM (3.8-5.5); Red Cell Distribution Width 15.3 % (9.3-17.3); White Blood Count 7.8 T/CUMM (4-12)
[2022-04-03 05:34] LABS: Calcium 8.2 MG/DL (8.5-10.1); Osmolality,Calculated 291.7 MOS/KG (273-304); Potassium 3.9 MMOL/L (3.5-5.1)
[2022-04-03 08:41] VITALS: BP 96/55
[2022-04-03] MEDS ORDERED: DILTIAZEM CD 180 MG CAPSULE PO SCH (09:00)
[2022-04-03] MEDS: FUROSEMIDE 40 MG TABLET PO SCH (09:42)
[2022-04-03] MEDS: APIXABAN 5 MG TABLET PO SCH (09:42)
[2022-04-03] MEDS: METOPROLOL SUCCINATE XL 25 MG TABLET PO SCH (09:43)
[2022-04-03] MEDS: CLOPIDOGREL 75 MG TABLET PO SCH (09:43)
[2022-04-03] MEDS: LOSARTAN 25 MG TABLET PO SCH (09:43)
[2022-04-03] MEDS: PANTOPRAZOLE 40 MG TABLET PO SCH (09:43)
[2022-04-03] MEDS: NYSTATIN/TRIAMCINOLONE CREAM 15 GM TUBE TOP SCH (09:44)
== END 2022-04-03 13:05 | disposition home or self-care (01) | DRG 309 ==
LOC: N.ED 10:35 → SUATTDRO 14:15 → N.EDINP 14:15 → N.TELEN 15:44
PROVIDERS: ADMIT Internal Medicine Cardiovascular Disease; ATTEND Internal Medicine Cardiovascular Disease